=== PATIENT | male | born 1960 | race Caucasian/White ===

== ENCOUNTER 2023-10-13 16:48 | Inpatient (IN) | payer BC ==
[2023-10-13 17:18] LABS: BASOPHILS ABSOLUTE AUTO 0.03 K/uL (0.00-0.10); BASOPHILS PERCENT AUTO 0.4 % (0.1-1.3); EOSINOPHILS ABSOLUTE AUTO 0.11 K/uL (0.00-0.40); EOSINOPHILS PERCENT AUTO 1.3 % (0.0-5.4); HEMATOCRIT 38.6 % (38.4-49.7); HEMOGLOBIN 13.6 g/dL (12.9-16.9); IMMATURE GRAN ABSOLUTE AUTO 0.04 K/uL (0.00-0.23); IMMATURE GRAN PERCENT AUTO 0.5 % (0.0-0.7); LYMPHOCYTES ABSOLUTE AUTO 1.78 K/uL (0.8-3.3); LYMPHOCYTES PERCENT AUTO 21.2 % (11.4-47.7); MEAN CORPUSCULAR HEMOGLOBIN 29.8 pg (31.6-35.5); MEAN CORPUSCULAR HGB CONC 35.2 g/dL (31.6-35.5); MEAN CORPUSCULAR VOLUME 84.5 fL (81.4-99.0); MONOCYTES ABSOLUTE AUTO 0.61 K/uL (0.20-0.90); MONOCYTES PERCENT AUTO 7.3 % (3.3-12.6); NEUTROPHILS ABSOLUTE AUTO 5.82 K/uL (1.0-7.6); NEUTROPHILS PERCENT AUTO 69.3 % (40.0-78.1); PLATELET COUNT,PLT 176 K/uL (130-375); RED BLOOD CELL COUNT 4.57 M/uL (4.14-5.76); WHITE BLOOD CELL COUNT,WBC 8.4 K/uL (3.2-11.0)
[2023-10-13] MEDS: HYDROmorphone 1 MG/ML Syringe IVPUSH ONE ×2 (17:27→19:12)
[2023-10-13 17:29] LABS: INR 3.6; PROTHROMBIN TIME 34.8 sec (9.2-10.6)
[2023-10-13 17:53] LABS: ALANINE AMINOTRANSFERASE,ALT 42 U/L (12-78); ALBUMIN 3.7 g/dL (3.4-5.0); ALKALINE PHOSPHATASE 84 U/L (46-116); ANION GAP 12.7 mmol/L (5.0-14.0); ASPARTATE AMNIOTRANSFERASE,AST 33 U/L (15-37); BILIRUBIN TOTAL 0.5 mg/dL (0.2-1.0); BLOOD UREA NITROGEN,BUN 16 mg/dL (7-18); CALCIUM 8.6 mg/dL (8.5-10.1); CARBON DIOXIDE,CO2 29 mmol/L (21-32); CHLORIDE,CL 99 mmol/L (100-108); CREATININE 1.5 mg/dL (0.8-1.3); EST CRCL DRUG DOSING (CG) 50.41 mL/min; ESTIMATED GFR 52 mL/min (>60); GLUCOSE RANDOM 150 mg/dL (74-106); POTASSIUM,K 3.7 mmol/L (3.6-5.2); PROTEIN TOTAL,TP 7.5 g/dL (6.4-8.2); SODIUM,NA 137 mmol/L (140-148)
[2023-10-13 18:48] LABS: APPEARANCE,URINE CLEAR (CLEAR); BILIRUBIN,URINE NEGATIVE (NEGATIVE); COLOR,URINE YELLOW (YELLOW); GLUCOSE,URINE 500 mg/dL (NEGATIVE); KETONES,URINE NEGATIVE (NEGATIVE); LEUKOCYTE ESTERASE,URINE NEGATIVE (NEGATIVE); NITRITE,URINE NEGATIVE (NEGATIVE); OCCULT BLOOD,URINE NEGATIVE (NEGATIVE); PH,URINE 6.5 (5.0-8.0); PROTEIN,URINE NEGATIVE (NEGATIVE); UROBILINOGEN,URINE 0.2 EU/dL (0.2-1.0)
[2023-10-13 18:53] LABS: AMORPHOUS SEDIMENT,URINE NOT SEEN; BACTERIA,URINE FEW; EPITHELIAL CELLS,URINE RARE; MUCUS,URINE FEW; RBC,URINE NOT SEEN (0-5); WBC,URINE 0-5 (0-5)
[2023-10-13] MEDS ORDERED: Sodium Chloride 0.9% 1,000 ML IV SCH (20:00)
[2023-10-13] MEDS ORDERED: Glucose Gel 15 GM in 37.5 GM Tube PO PRN (21:37)
[2023-10-13] MEDS ORDERED: Glucagon,Human Recombinant 1 MG Vial IM PRN (21:37)
[2023-10-13] MEDS ORDERED: Albuterol 0.083% 2.5 MG/3 ML Neb Soln NEB PRN (21:37)
[2023-10-13] MEDS ORDERED: Sodium Chloride 0.9% 10 ML Syringe FLUSH PRN (21:37)
[2023-10-13] MEDS ORDERED: Albuterol 6.7 GM Inhaler INH PRN (21:37)
[2023-10-13] MEDS ORDERED: Naloxone 0.4 MG/ML SDV IVPUSH PRN (21:37)
[2023-10-13] MEDS ORDERED: 50% Dextrose in Water 50 ML Syringe IV PRN (21:37)
[2023-10-13] MEDS ORDERED: Ondansetron 4 MG/2 ML SDV IV PRN (21:37)
[2023-10-13] MEDS: oxyCODONE 5 MG Tab PO PRN (22:14)
[2023-10-13] MEDS: Acetaminophen 325 MG Tab PO PRN (22:14)
[2023-10-13] MEDS: Metoprolol Tartrate 50 MG Tab PO SCH (22:16)
[2023-10-13] MEDS: traZODone 50 MG Tab PO SCH (22:16)
[2023-10-13] MEDS: Insulin Glargine,Human Rec. Analog 100 Units/ML 3 ML Pen SUBCUT SCH (22:17)
[2023-10-13] MEDS: Furosemide 40 MG Tab PO SCH (22:17)
[2023-10-13] MEDS: Tiotropium Bromide 4 GM Inhalation Spray (2.5mcg/1 dose; 10 doses) INH SCH (22:18)
[2023-10-13] MEDS: Insulin Lispro 100 Unit/ML 3 ML KwikPen SUBCUT SCH (22:33)
[2023-10-13] MEDS: Rosuvastatin 10 MG Tab PO SCH (22:40)
[2023-10-14] MEDS: HYDROmorphone 0.5 MG/0.5 ML Syringe IVPUSH PRN (00:16)
[2023-10-14 05:10] LABS: HEMATOCRIT 34.3 % (38.4-49.7); HEMOGLOBIN 12.1 g/dL (12.9-16.9); MEAN CORPUSCULAR HGB CONC 35.3 g/dL (31.6-35.5); MEAN CORPUSCULAR VOLUME 84.9 fL (81.4-99.0); RED BLOOD CELL COUNT 4.04 M/uL (4.14-5.76); WHITE BLOOD CELL COUNT,WBC 8.5 K/uL (3.2-11.0)
[2023-10-14 05:23] LABS: INR 3.6; PROTHROMBIN TIME 35.1 sec (9.2-10.6)
[2023-10-14 05:26] LABS: CALCIUM 7.9 mg/dL (8.5-10.1); CREATININE 1.4 mg/dL (0.8-1.3); EST CRCL DRUG DOSING (CG) 54.01 mL/min; MAGNESIUM 1.6 mg/dL (1.8-2.4); POTASSIUM,K 3.8 mmol/L (3.6-5.2)
[2023-10-14] MEDS: Ketorolac 15 MG/ML SDV IVPUSH PRN (05:39)
[2023-10-14] MEDS: HYDROmorphone 1 MG/ML Syringe IVPUSH PRN (05:40)
[2023-10-14 05:48] LABS: ANION GAP 13.8 mmol/L (5.0-14.0)
[2023-10-14] MEDS: Sodium Chloride 0.9% 1,000 ML IV SCH (06:58)
[2023-10-14] MEDS: oxyCODONE 5 MG Tab PO PRN (08:04)
[2023-10-14] MEDS: Insulin Lispro 100 Unit/ML 3 ML KwikPen SUBCUT SCH ×3 (08:24→12:02)
[2023-10-14] MEDS: Pantoprazole 40 MG Tab.CR PO SCH (08:25)
[2023-10-14] MEDS ORDERED: Magnesium Oxide 400 MG Tab PO SCH (09:00)
[2023-10-14] MEDS: Phytonadione 5 MG in Sodium Chloride 0.9% 50 ML IV ONE (09:01)
[2023-10-14] MEDS: Formoterol/Mometasone 200-5 MCG 8.8 GM Inhaler IH SCH (09:01)
[2023-10-14] MEDS: Empagliflozin 10 MG Tab PO SCH (09:02)
[2023-10-14] MEDS: Metoprolol Tartrate 25 MG Tab PO SCH (09:02)
[2023-10-14] MEDS: Magnesium Oxide 400 MG Tab PO SCH (09:02)
[2023-10-14] MEDS: Magnesium Sulfate/Water 2 GM in Premix Bag 1 BAG IV SCH (10:03)
[2023-10-14] MEDS: Flecainide 50 MG Tab PO SCH (10:03)
[2023-10-14] MEDS: diphenhydrAMINE 25 MG Cap PO PRN (15:44)
[2023-10-14] MEDS: Montelukast 10 MG Tab PO SCH (21:12)
[2023-10-14] MEDS: Tiotropium Bromide 4 GM Inhalation Spray (2.5mcg/1 dose; 10 doses) INH SCH (21:13)
[2023-10-15 05:37] LABS: INR 1.4
[2023-10-15 05:42] LABS: CALCIUM 7.9 mg/dL (8.5-10.1); CREATININE 1.6 mg/dL (0.8-1.3); EST CRCL DRUG DOSING (CG) 47.26 mL/min; MAGNESIUM 2.1 mg/dL (1.8-2.4); POTASSIUM,K 3.6 mmol/L (3.6-5.2)
[2023-10-15 05:49] LABS: ANION GAP 11.6 mmol/L (5.0-14.0)
[2023-10-15] MEDS: Polyethylene Glycol 3350 Powder 17 GM Packet PO PRN (09:26)
[2023-10-15] MEDS: Acetaminophen 500 MG Tab PO SCH (14:03)
[2023-10-15] MEDS: oxyCODONE 5 MG Tab PO PRN (15:55)
[2023-10-16 06:25] LABS: HEMATOCRIT 29.7 % (38.4-49.7); HEMOGLOBIN 10.4 g/dL (12.9-16.9); MEAN CORPUSCULAR HEMOGLOBIN 29.6 pg (31.6-35.5); MEAN CORPUSCULAR VOLUME 84.6 fL (81.4-99.0); RED BLOOD CELL COUNT 3.51 M/uL (4.14-5.76)
[2023-10-16 06:43] LABS: INR 1.1; PROTHROMBIN TIME 11.6 sec (9.2-10.6)
[2023-10-16 06:45] LABS: CALCIUM 8.5 mg/dL (8.5-10.1); CREATININE 1.5 mg/dL (0.8-1.3); EST CRCL DRUG DOSING (CG) 50.41 mL/min; POTASSIUM,K 3.8 mmol/L (3.6-5.2)
[2023-10-16 06:47] LABS: ANION GAP 10.8 mmol/L (5.0-14.0)
== END 2023-10-17 11:32 | disposition home or self-care (01) | DRG 342 ==
LOC: JP.ED 16:48 → JP.MS 20:05
PROVIDERS: ADMIT Hospitalist; ATTEND Internal Medicine
DX: S42.292A Other displaced fracture of upper end of left humerus, initial encounter for closed fracture (principal); E78.00 Pure hypercholesterolemia, unspecified; N18.9 Chronic kidney disease, unspecified; E11.22 Type 2 diabetes mellitus with diabetic chronic kidney disease; I12.9 Hypertensive chronic kidney disease with stage 1 through stage 4 chronic kidney disease, or unspecified chronic kidney disease; G47.33 Obstructive sleep apnea (adult) (pediatric); I48.20 Chronic atrial fibrillation, unspecified; D63.1 Anemia in chronic kidney disease; F41.9 Anxiety disorder, unspecified; R79.1 Abnormal coagulation profile; Z77.22 Contact with and (suspected) exposure to environmental tobacco smoke (acute) (chronic); Z91.041 Radiographic dye allergy status; Z79.01 Long term (current) use of anticoagulants; Z79.899 Other long term (current) drug therapy; Z96.659 Presence of unspecified artificial knee joint; Z86.010 Personal history of colon polyps; W19.XXXA Unspecified fall, initial encounter
CPT/HCPCS: 36415; 70450; 73060-26-LT; 73060-LT; 73090-26-LT; 73090-LT; 73562-26-LT; 73562-LT; 80048; 80053; 81001; 82947; 83735; 85025; 85027; 85610; 94640; 96374; 96376; 99222; 99232; 99238; 99285; 99285-25; A9270-GY; J1170; J1815; J1815-GY; J1885; J3430; J3475; J3490; J7030